=== PATIENT | male | born 1995 | race Two or more races ===

== ENCOUNTER 2016-08-04 13:02 | Emergency (ER) | payer OTHER ==
[~2016-08-04] VITALS: Ht 167.6 cm; Wt 59.0 kg
[2016-08-04] MEDS ORDERED: Lidocaine 1% MPF 10mg/ml 5ml INJ ONE (13:30)
[2016-08-04] MEDS ORDERED: Bacitracin Oint UD TOPIC ONE (13:30)
[2016-08-04 14:15] VITALS: BP 112/70
[2016-08-04] MEDS ORDERED: BACITRACIN15 GM TOPIC (14:37)
--- NOTE | 2016-08-04 14:53 | Emergency Room Report ---
History of Present Illness General Chief Complaint: Laceration Source: Patient Present Illness HPI The patient is a 21-year-old male presenting for laceration to the right fingers which occurred today at work. The patient states that he was slicing meat when the instrument slipped. The patient noticed pain and bleeding of the right second and third fingers. The patient describes the pain as a 5/10 dull ache to both areas and does not radiate. The patient denies any numbness or tingling. The patient denies any other symptoms. The patient states his last tetanus shot was within 10 years. Allergies: Coded Allergies: No Known Allergies (Unverified , 08/04/16) Patient History Past Medical History: see triage record Pertinent Family History: none Immunizations: UTD Reviewed Nursing Documentation: PMH: Agreed, PSxH: Agreed Nursing Documentation-PM Past Medical History: No Stated History Review of Systems All Other Systems: negative except mentioned in HPI Physical Exam Vital Signs Date Time Temp Pulse Resp B/P Pulse Ox O2 Delivery O2 Flow Rate FiO2 08/04/16 13:10 97.9 90 20 112/70 100 Room Air Sp02 EP Interpretation: reviewed, normal General Appearance: no apparent distress, alert, GCS 15, non-toxic Head: normocephalic, atraumatic Eyes: bilateral eye PERRL, bilateral eye normal inspection ENT: hearing grossly normal, normal pharynx, no angioedema, normal voice Neck: full range of motion, supple/symm/no masses Musculoskeletal: back normal, gait/station normal, normal range of motion, tender - TTP over lacerations Neurologic: alert, oriented x3, responsive, motor strength/tone normal, sensory intact, speech normal Psychiatric: judgement/insight normal, memory normal, mood/affect normal, no suicidal/homicidal ideation Skin: no rash, well hydrated, laceration - Right hand: Second digit palmar surface 1 cm linear laceration distal to the DIP joint. Third digit palmar surface 1 cm linear laceration distal to the DIP joint. Minimal bleeding Procedures Laceration/Wound Repair Laceration/Wound Repair #1: Consent: Verbal Wound Location: upper extremity - R 2nd finger Wound's Depth, Shape: superficial Wound Length (cm): 1 Wound Explored: clean Irrigated w/ Saline (ccs): 100 Betadine Prep?: Yes Anesthesia: 1% Lidocaine Volume Anesthetic (ccs): 4 Wound Debrided: minimal Wound Repaired With: sutures Suture Size/Type: 5:0, proline Number of Sutures: 3 Layer Closure?: No Sterile Dressing Applied?: Yes Splint Applied?: No Sling Applied?: No Patient Tolerated: Well Complications: None Laceration/Wound Repair #2: Consent: Verbal Wound Location: upper extremity - R 3rd finger Wound's Depth, Shape: superficial Wound Length (cm): 1 Wound Explored: clean Irrigated w/ Saline (ccs): 100 Betadine Prep?: Yes Anesthesia: 1% Lidocaine Volume Anesthetic (ccs): 4 Wound Debrided: minimal Wound Repaired With: sutures Suture Size/Type: 5:0, proline Number of Sutures: 3 Layer Closure?: No Sterile Dressing Applied?: Yes Splint Applied?: No Sling Applied?: No Patient Tolerated: Well Complications: None Medical Decision Making PA Attestation Dr. Downs is my supervising physician. Patient management was discussed with my supervising physician Diagnostic Impression: Primary Impression: Finger laceration ER Course The patient is a 21-year-old male presenting for right hand laceration sustained at work. Ddx considered include but not limited to laceration, fracture, tendon/ligament injury, avulsion, nerve damage PE: Vitals WNL. NAD Right hand: Second digit palmar surface 1 cm linear laceration distal to the DIP joint. Third digit palmar surface 1 cm linear laceration distal to the DIP joint. Minimal bleeding The wound was irrigated with normal saline and cleaned with betadine. A 27g needle was used to administer a total of 8mL of lidocaine w.o epi for digital block. 6 total sutures were placed with 5-0 Proline. The wound was well approximated and the patient tolerated the procedure well. The wound was then cleaned and bacitracin was applied. The patient will follow up with workers compensation. The patient is given a prescription for bacitracin and is given instructions to have sutures removed in 6-7 days. ER precautions are given Last Vital Signs Date Time Temp Pulse Resp B/P Pulse Ox O2 Delivery O2 Flow Rate FiO2 08/04/16 14:15 97.9 69 20 112/70 100 Room Air Status: improved Disposition: HOME, SELF-CARE Condition: Improved Scripts Bacitracin (Bacitracin) 28.4 Gm Oint...g. 1 APPLIC TOPIC THREE TIMES A DAY, #28 GM Prov: VINITA CHO 08/04/16 Patient Instructions: Laceration Care, Adult Additional Instructions: I discussed my findings with the patient. All questions and concerns have been answered. Treatment and medication compliance have been addressed. I advised the patient that they need to follow up with PMD in 7 days for wound check and suture removal. If you are unable to see PMD, return to the ED in 7 days. Return to ED if pain remains or worsens, you notice discharge from the wound, the wound continues to bleed, the suture/s fall out, you notice a fever or chills, or for any reason. Patient is advised to keep the wound clean and apply an antibacterial ointment. Patient verbalized understanding of discharge instructions. VINITA CHO Aug 04, 2016 14:53
[2016-08-04 15:00] VITALS: BP 112/70
== END 2016-08-04 15:01 | disposition home or self-care (01) ==
LOC: EMR 13:55
DX: S61.210A Laceration without foreign body of right index finger without damage to nail, initial encounter (principal); S61.212A Laceration without foreign body of right middle finger without damage to nail, initial encounter; W26.0XXA Contact with knife, initial encounter; Y93.G9 Activity, other involving cooking and grilling; Y92.511 Restaurant or cafe as the place of occurrence of the external cause; Y99.0 Civilian activity done for income or pay

== ENCOUNTER 2016-08-14 18:05 | Emergency (ER) | payer OTHER ==
[~2016-08-14] VITALS: Ht 167.6 cm; Wt 59.0 kg
[~2016-08-14 18:05] MED LIST: BACITRACIN15 GM TOPIC
[2016-08-14 18:21] VITALS: BP 141/76
[2016-08-14] MEDS ORDERED: HM DOUBLE ANT28.4 G1 TP (18:40)
--- NOTE | 2016-08-14 18:40 | Emergency Room Report ---
History of Present Illness General Chief Complaint: Wound Recheck/Suture Removal Source: Patient Present Illness HPI 21-year-old male presents to emergency Department complaining of having previously sutured laceration to the right index and middle finger approximately one week ago that now needs suture removal. Patient denies erythema, increased temperature palpation or discharge. Patient states he has been applying antibiotic ointment and feels that the wounds are healing well. he denies pain or obvious dehiscence at the site. Patient is up-to-date with vaccinations. Denies numbness tingling or loss of sensation or gross motor movements of the extremities, incontinence of bowel or bladder. Denies CP, Palpitations, LOC, AMS, dizziness, Changes in Vision, Sensation, paresthesias, or a sudden severe headache. Allergies: Coded Allergies: No Known Allergies (Unverified , 08/04/16) Patient History Past Medical History: see triage record Past Surgical History: none Pertinent Family History: none Immunizations: UTD Reviewed Nursing Documentation: PMH: Agreed, PSxH: Agreed Nursing Documentation-PMH Past Medical History: No Stated History Review of Systems All Other Systems: negative except mentioned in HPI Physical Exam Vital Signs Date Time Temp Pulse Resp B/P Pulse Ox O2 Delivery O2 Flow Rate FiO2 08/14/16 18:12 98.2 88 14 144/74 100 Room Air Sp02 EP Interpretation: reviewed, normal General Appearance: no apparent distress, alert, GCS 15, non-toxic Head: normocephalic, atraumatic Eyes: bilateral eye PERRL, bilateral eye normal inspection ENT: hearing grossly normal, normal pharynx, no angioedema, normal voice Neck: full range of motion, supple/symm/no masses Respiratory: chest non-tender, lungs clear, normal breath sounds, speaking full sentences Cardiovascular #1: regular rate, rhythm, no edema Rectal: deferred Musculoskeletal: back normal, gait/station normal, normal range of motion, non- tender, no calf tenderness Neurologic: alert, oriented x3, responsive, motor strength/tone normal, sensory intact, speech normal Psychiatric: judgement/insight normal, memory normal, mood/affect normal, no suicidal/homicidal ideation Skin: normal color, no rash, warm/dry, well hydrated, wd healing/no infection noted - 6 sutures noted, no dehiscence no infeciton noted. Lymphatic: no adenopathy Medical Decision Making PA Attestation Dr. Lopes is my supervising Physician whom patient management has been discussed with. Diagnostic Impression: Primary Impression: Encounter for removal of sutures ER Course Pt. presents to the ED c/o sutures that need to be removed s/p wound closure. 6 total 3 each in the right index and middle finger. Ddx considered but are not limited to laceration, tendon injury, cellulitis, dehiscence. Vital signs: are WNL, pt. is afebrile H&PE are most consistent with: healed lacerations of the right index and middle finger ORDERS: none required at this time, the diagnosis is clinical ED INTERVENTIONS: - 6 Sutures removed. DISCHARGE: At this time pt. is stable for d/c to home. Will provide printed patient care instructions, and any necessary prescriptions. Care plan and follow up instructions have been discussed with the patient prior to discharge. Last Vital Signs Date Time Temp Pulse Resp B/P Pulse Ox O2 Delivery O2 Flow Rate FiO2 08/14/16 18:21 98.1 91 15 141/76 100 Room Air Disposition: HOME, SELF-CARE Condition: Stable Scripts Bacitracin Zinc/Polymyx B Sulf (HM DOUBLE ANTIBIOTIC OINTMENT) 28.4 Gm Oint...g. 1 APPLIC TP BID, #28.4 GM Prov: Vickie Arroyo 08/14/16 Patient Instructions: Suture Removal, Care After Additional Instructions: Take medications as directed. Follow up with PCP in 3-5 days Return sooner to ED if new symptoms occur, or current symptoms become worse. Vickie Arroyo Aug 14, 2016 18:39
[2016-08-14 19:02] VITALS: BP 141/76
== END 2016-08-14 19:05 | disposition home or self-care (01) ==
LOC: EMR 19:00
DX: S61.219D Laceration without foreign body of unspecified finger without damage to nail, subsequent encounter (principal); Z48.02 Encounter for removal of sutures
CPT/HCPCS: 99283